=== PATIENT | male | born 2000 | race Two or more races ===

== ENCOUNTER 2024-10-15 21:46 | Emergency (ER) | payer SELFPAY ==
[2024-10-15 22:00] VITALS: BP 148/84; PULSE 95; RESP 18; TEMP 36.8; O2SAT 97; BMI 27.3
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
== END 2024-10-15 22:59 | disposition home or self-care (01) ==
LOC: SERX 23:00
PROVIDERS: Emergency Provider Emergency Medicine; PCP Physician Assistant
DX: S00.31XA Abrasion of nose, initial encounter (principal); S00.33XA Contusion of nose, initial encounter; Y35.91XA Legal intervention, means unspecified, law enforcement official injured, initial encounter
CPT/HCPCS: 99281

== ENCOUNTER 2025-08-04 14:19 | Emergency (ER) | payer OTHER, SELFPAY ==
[2025-08-04 15:42] VITALS: BP 131/80; PULSE 61; RESP 16; TEMP 36.7; O2SAT 98; BMI 29.7
--- NOTE | 2025-08-04 15:50 | XR_ITS ---
Examination: Abdomen sonogram, Limited Date and time of exam: August 04, 2025, 1705 hours INDICATIONS: Right upper abdominal pain beginning 3 days ago Technique: Real-time edward scale transabdominal sonographic images of the upper abdomen obtained. Findings: Normal gallbladder Normal common bile duct 0.3 cm Pancreas obscured by bowel gas Liver 13.6 cm smooth contour no focal liver lesions Normal hepatopetal portal venous flow Patent IVC IMPRESSION: Normal gallbladder Normal common bile duct Liver normal size
--- NOTE | 2025-08-04 15:51 | PD.EDRME ---
Rapid Medical Screening [facility] Arrival date/time: 08/04/25 14:19 This is a 24-year-old male that comes into the emergency room with complaints of abdominal pain for the past few days. Patient denies fever, nausea, vomiting, diarrhea. Patient denies any constipation. Patient denies any past medical history. Patient denies any drug use. I have greeted and performed a focused initial assessment of this patient. Initial appropriate labs ordered at this time. A comprehensive ED assessment and evaluation of the patient and analysis of all test and completion of medical decision making process will be conducted by additional ED provider. Chief Complaint: Abdominal Pain Time Seen by Provider: 08/04/25 14:31 Vital signs: Vital Signs Temperature 98.1 F 08/04/25 15:42 Pulse Rate 61 08/04/25 15:42 Respiratory Rate 16 08/04/25 15:42 Blood Pressure 131/80 H 08/04/25 15:42 Pulse Oximetry (%) 98 08/04/25 15:42 Oxygen Delivery Method Room Air 08/04/25 15:42 Exam: Alert and oriented, breathing even and unlabored, skin warm and dry Clinical Impression: Abdominal pain
[2025-08-04 16:28] LABS: Collection Type, Urine Voided; Squamous Epithelial Cell,Urine 0 /hpf (0-5)
[2025-08-04 16:41] LABS: Basophils # (Auto) 0.1 Thou/mm3 (0.0-0.2); Basophils % (Auto) 1 % (0-2.5); Eosinophils # (Auto) 0.2 Thou/mm3 (0.0-0.5); Eosinophils % (Auto) 2 % (0-10); Hematocrit 44.6 % (41.0-53.0); Hemoglobin 15.2 g/dL (13.5-16.0); Immature Granulocytes Auto 0.04 Thou/mm3 (0.00-0.00); Lymphocytes # (Auto) 2.5 Thou/mm3 (1.0-4.8); Lymphocytes % (Auto) 26 % (10-50); Mean Corpuscular HGB Conc 34.1 g/dl (31.0-37.0); Mean Corpuscular Hemoglobin 28.7 pg (25.0-35.0); Mean Corpuscular Volume 84 fL (80-100); Monocytes # (Auto) 0.6 Thou/mm3 (0.0-0.8); Monocytes % (Auto) 7 % (0-12); Neutrophils # (Auto) 6.2 Thou/mm3 (1.8-7.7); Neutrophils % (Auto) 65 % (37-80); Nucleated Red Blood Cell # 0.00 Thou/mm3 (0.00-0.00); Nucleated Red Blood Cell % 0 /100 WBC (0); Platelet Count 213 Thou/mm3 (140-440); RDW Standard Deviation 39.9 fL (35.1-43.9); Red Blood Count 5.30 Miln/mm3 (4.50-5.90); White Blood Count 9.7 Thou/mm3 (3.8-10.6)
[2025-08-04 16:50] LABS: Bilirubin,Urine Negative (Negative); Blood,Urine Negative (Negative); Clarity,Urine Clear (Clear/Hazy); Color,Urine Lt-Yellow (Lt Yel-Yel); Culture Indicated,Urine Not Indicated; Glucose, Urine Negative (Negative); Ketones,Urine Negative (Negative); Leukocyte Esterase,Urine Negative (Negative); Nitrite,Urine Negative (Negative); PH,Urine 6.5 (5.0-7.0); Protein,Urine Negative (Neg - Trace); RBC,Urine 1 /hpf (0-3); Specific Gravity,Urine 1.016 (1.001-1.035); Urobilinogen,Urine Negative mg/dL (0.0-1.0); WBC,Urine < 1 /hpf (0-5)
[2025-08-04 16:56] LABS: Alanine Aminotransferase 17 U/L (10-49); Albumin, Serum 5.0 gm/dL (3.5-5.0); Albumin/Globulin Ratio 1.7 (1.2-2.2); Alkaline Phosphatase 91 U/L (46-116); Anion Gap 8 (7-16); Aspartate Amino Transferase 27 U/L (0-34); BUN/Creatinine Ratio 7 Ratio (12-20); Bilirubin,Total 0.5 mg/dL (0.3-1.2); Blood Urea Nitrogen 8 mg/dL (9-23); Calcium 9.5 mg/dL (8.3-10.6); Calcium (Corrected) 9.5 mg/dL (8.5-10.1); Carbon Dioxide 29.6 mMol/L (20.0-31.0); Chloride 105 mMol/L (98-107); Creatinine (Component) 1.1 mg/dL (0.6-1.3); Estimated Creatinine Clearance 108.6 mL/min (>60); Globulin 2.9 gm/dL (2.3-3.5); Glucose 94 mg/dL (74-106); Lipase 27 U/L (12-53); Osmolality,Calculated 283 (275-295); Potassium 4.2 mMol/L (3.4-5.1); Sodium 143 mMol/L (136-145); Total Protein 7.9 gm/dL (5.7-8.2); eGFR > 60 See Note
--- NOTE | 2025-08-04 19:20 | XR_ITS ---
Examination: CT abdomen with intravenous contrast CT pelvis with intravenous contrast 2-D coronal reconstructions 2-D sagittal reconstructions Date and time of exam: August 04, 2025, 2114 hours INDICATIONS: Abdominal pain beginning 3 days ago. CTDI: vol (mGy) 7.97 DLP: (mGycm) 462 Technique: Multiple axial sections of the abdomen and pelvis have been obtained. 64 slice high-resolution scanner used. 3 mm axial sections have been obtained, post intravenous injection 60 cc [id number] 2-D sagittal, coronal reconstructions obtained. Low dose protocols were performed. One or more of the following dose reduction techniques were used; automated exposure control, adjustment of the mA and/or KV according to patient size, use of iterative reconstruction technique. Findings: No focal liver or splenic lesion Contracted gallbladder No pancreatic or adrenal mass, negative for pancreatitis No renal or ureteral calculi No extrahepatic biliary tract dilatation Aorta normal size No bowel obstruction Focal inflammation in the peritoneal fat with surrounding peritoneal fat inflammation Normal appendix No diverticulitis Normal seminal vesicles No prostatomegaly Bladder intact No inguinal hernia IMPRESSION: Focal inflammation in the peritoneal fat, 11 mm, image 86, with surrounding peritoneal fat inflammation, epiploic appendagitis pattern
--- NOTE | 2025-08-04 19:21 | EDNOTE_ITS ---
ED Abdominal Pain RME/HPI General Chief Complaint: Abdominal Pain Stated complaint: RIGHT SIDED ABD PAIN X 3 DAYS Time seen by provider: 08/04/25 14:31 Arrival date/time: 08/04/25 14:19 24-year-old male patient came in for evaluation regarding right sided abdominal pain. Onset of symptoms for the last 3 days is worsening right- sided abdominal pain, described as sharp pain, severity 10 out of 10. Patient is denying any nausea vomiting diarrhea constipation hematuria dysuria frequency. Denies any fever also. No medication was taken prior to ER visit. Denies any abdominal surgery RME / HPI RME / HPI narrative: 08/04/25 14:19 This is a 24-year-old male that comes into the emergency room with complaints of abdominal pain for the past few days. Patient denies fever, nausea, vomiting, diarrhea. Patient denies any constipation. Patient denies any past medical history. Patient denies any drug use. I have greeted and performed a focused initial assessment of this patient. Initial appropriate labs ordered at this time. A comprehensive ED assessment and evaluation of the patient and analysis of all test and completion of medical decision making process will be conducted by additional ED provider. Exam: Alert and oriented, breathing even and unlabored, skin warm and dry Impression: Abdominal pain Related Data Previous Rx's ?Medication ?Instructions ?Recorded ibuprofen 800 mg tablet 800 mg PO Q8H PRN pain #30 t abs 08/04/25 ketorolac 10 mg tablet 10 mg PO Q8H PRN pain 5 days #20 08/04/25 tabs Allergies Allergy/AdvReac Type Severity Reaction Status Date / Time No Known Allergies Allergy Verified 08/04/25 14:21 Review of Systems Review of Systems Narrative Review of Systems: Review of system reviewed and within normal limits except mentioned in HPI ED Exam Narrative Physical exam: VITAL SIGNS: Reviewed. GENERAL APPEARANCE: Alert and interactive, follows commands, no acute distress, HEAD AND FACE: Non-traumatic. ENT: PERRL, pink conjunctivitis, eyelid no trauma, Mucous membrane moist. NECK: Supple, nontender, no nuchal rigidity. CHEST: No tenderness, no crepitus, no paradoxical movement, no retractions. LUNGS: Clear, well ventilated, symmetric, no rales, no wheezing, no ronchi, no stridor, good breath sounds bilaterally. HEART: Regular rate, regular rhythm, no murmur, no gallops. ABDOMEN: Soft, positive bowel sounds, nondistended, no guarding, right sided mid abdominal tenderness, no rebound, no masses, RECTAL: Deferred. GENITAL: Deferred. NEUROLOGICAL: Gross motor function intact sensory function intact, Appropriate for age. MUSCULOSKELETAL: low back nontender, full range of motion. EXTREMITIES: Nontender, full range of motion. SKIN: Color pink, dry, no rash, no lacerations, no abrasions, no contusions. LYMPHATICS: Deferred. Course Quality Measures none Orders Category Date Time Status CT Screening NOW Care 08/04/25 19:21 Active Insert IV NOW Care 08/04/25 20:[address] abdomen pelvis w con Stat Exams 08/04/25 19:20 Completed US abdomen limited Stat Exams 08/04/25 15:50 Completed CBC Stat Lab 08/04/25 16:05 Completed Comprehensive Metabolic Panel Stat Lab 08/04/25 16:05 Completed Lipase Stat Lab 08/04/25 16:05 Completed Urinalysis, C/S if Indicated Stat Lab 08/04/25 15:57 Completed Ketorolac Inj [Toradol Inj] Med 08/04/25 21:36 Discontinued 30 mg IVP X1 ONE Morphine* Inj Med 08/04/25 19:21 Discontinued 4 mg IVP X1 ONE Ondansetron Inj [Zofran Inj] Med 08/04/25 19:20 Discontinued 4 mg IVP X1 ONE Ringers Lactated 1000 ml [Lactated Ringers] 1,000 ml Med 08/04/25 19:21 Discontinued IV 999 mls/hr Vital Signs Vital signs: Vital Signs Temperature 98.1 F 08/04/25 15:42 Pulse Rate 61 08/04/25 15:42 Respiratory Rate 16 08/04/25 15:42 Blood Pressure 131/80 H 08/04/25 15:42 Pulse Oximetry (%) 98 08/04/25 15:42 Oxygen Delivery Method Room Air 08/04/25 15:42 Abdominal Pain MDM MDM Narrative MDM Narrative:: 24-year-old male patient came in for evaluation regarding right sided abdominal pain. Onset of symptoms for the last 3 days is worsening right-sided abdominal pain, described as sharp pain, severity 10 out of 10. Patient is denying any nausea vomiting diarrhea constipation hematuria dysuria frequency. Denies any fever also. No medication was taken prior to ER visit. Denies any abdominal surgery Patient's laboratory workup all came back unremarkable no leukocytosis, CMP unremarkable urinalysis no UTI. Ultrasound of the gallbladder came back normal. CT scan of the abdomen showed Focal inflammation in the peritoneal fat, 11 mm, image 86, with surrounding peritoneal fat inflammation, epiploic appendagitis pattern Results discussed with the patient. Patient verbalized significant improvement of symptoms after patient received Zofran morphine IV fluids and Toradol IV Stable discharge home Patient data External records reviewed:: None Clinical information provided by:: patient Social determinants that could affect healthcare access:: none Patient has the following chronic illnesses:: None How is presenting disease/condition affected by chronic disease/condition?: exacerbated by Evaluation data The following diagnostics were reviewed and interpreted by me:: lab results and radiology exam(s) Lab and/or radiology exams considered but not ordered:: None Interpretation Summary: See above Medications / Prescriptions Medications or Prescriptions considered but not ordered:: None Medication administrations:: Medication Administration History Discontinued Medications Lactated Ringer's (Lactated Ringers) 1,000 mls @ 999 mls/hr IV .Q1H1M ONE Stop: 08/04/25 20:21 Last Infusion: 08/04/25 20:42 Dose: Infused Documented By: Admin: 08/04/25 20:12 Dose: 999 mls/hr Documented By: BD Ketorolac Tromethamine (Ketorolac Inj 30 Mg/Ml Vial) 30 mg IVP X1 ONE Stop: 08/04/25 21:37 Last Admin: 08/04/25 21:54 Dose: 30 mg Documented By: BD Morphine Sulfate (Morphine Sulf Inj 4 Mg/Ml Vial) 4 mg IVP X1 ONE Stop: 08/04/25 19:22 Last Admin: 08/04/25 20:12 Dose: 4 mg Documented By: BD Ondansetron HCl (Ondansetron Inj 2 Mg/Ml Inj 2 Ml) 4 mg IVP X1 ONE; Protocol Stop: 08/04/25 19:21 Last Admin: 08/04/25 20:12 Dose: 4 mg Documented By: BD See above Consultations Consultation(s) initiated? (list below): No Diagnosis Differential diagnosis abdominal pain: abdominal pain, acute appendicitis and gastroenteritis Most likely diagnosis given after review of the tests above:: Epiploic appendagitis Admission Indicated Admission indicated?: not indicated Admission Request Was there a request for admission?: No Disposition Plan Disposition Plan: Discharge Discharge Attestation Discharge Attestation: The patient and all family members were given an opportunity to ask questions and understood the discharge instructions. Discharge instructions specifically effects, indications for sooner follow up or return to the emergency department, and the expected course of current diagnosis. Patient condition: Stable Discharge Plan Plan Patient Disposition: HOME (Self Care) Discharge Disposition comment: Stable Prescriptions/Referrals Prescriptions/Med Rec: New ketorolac 10 mg tablet 10 mg PO Q8H PRN (Reason: pain) 5 Days Qty: 20 0RF ibuprofen 800 mg tablet 800 mg PO Q8H PRN (Reason: pain) Qty: 30 0RF Referrals: Shakira Dawson PA-C [Primary Care Provider, Family Practice] - In 1 week Problem List Clinical Impression: Epiploic appendagitis Patient/Caregiver Discharge Instructions Discharge Activity: activity as tolerated Education Materials: Anatomy of the Digestive System Additional Instructions: Thank you for the opportunity for serving you today. You are stable for discharged . You are advised to: Follow-up with your PCP in 1 to 2 days Return to ED for worsening of symptoms Increase oral fluids Take medication as prescribed Print Language: Hebrew Stand Alone Forms: Luanne Award Info., Patient Portal Info Letter FRANCHESCA/KEITH Supervising Physician ALDA Supervising Physician: MD Charan
[2025-08-04 19:42] VITALS: BP 130/74; PULSE 70; RESP 18; TEMP 36.9; O2SAT 99
[2025-08-04] MEDS: MORPHINE SULF INJ 4 MG/ML VIAL IVP (20:12)
[2025-08-04] MEDS: ONDANSETRON INJ 2 MG/ML INJ 2 ML 4 MG IVP (20:12)
[2025-08-04] MEDS: RINGERS LACTATED 1000 ML 1,000 ML 999 ML IV (20:12)
[2025-08-04] MEDS: KETOROLAC INJ 30 MG/ML VIAL IVP (21:54)
[2025-08-04 22:14] VITALS: BP 134/72; PULSE 70; RESP 18; TEMP 36.8; O2SAT 96
[2025-08-04 22:52] VITALS: BP 137/78; PULSE 67; RESP 18; TEMP 36.7; O2SAT 95
== END 2025-08-04 22:53 | disposition home or self-care (01) ==
PROVIDERS: Nurse Practitioner Family; Emergency Provider Emergency Medicine; PCP Physician Assistant
DX: K63.89 Other specified diseases of intestine (principal); R10.11 Right upper quadrant pain
CPT/HCPCS: 36415; 74177; 76705; 80053; 81001; 83690; 85025; 96374; 96375; 99284; A4649; J1885; J2270; J2405; J7120; Q9967